=== PATIENT | male | born 1935 | race Caucasian/White ===

== ENCOUNTER 2018-12-10 13:04 | Inpatient (IN) | payer MEDICARE ==
[~2018-12-10] VITALS: Ht 170.2 cm; Wt 77.6 kg
[2018-12-10] MEDS ORDERED: IV NS 1000 ML 1,000 ML IV PRN (16:30)
[2018-12-10] MEDS ORDERED: ONDANSETRON 4 MG/2 ML VIAL IV PRN (16:30)
[2018-12-10] MEDS ORDERED: MAGNESIUM HYDROXIDE 30 ML LIQUID UDC PO PRN (16:30)
[2018-12-10] MEDS ORDERED: Z GUARD REMEDY PASTE 57 GM TUBE TOP PRN (16:30)
[2018-12-10 16:31] VITALS: BP 117/91
[2018-12-10 17:41] LABS: ALANINE AMINOTRANSFERASE 7 U/L (16-63); ALKALINE PHOSPHATASE 44 U/L (50-136); ASPARTATE AMINOTRANSFERASE 12 U/L (15-37); BILIRUBIN,TOTAL 0.8 mg/dL (0.2-1.0); CARBON DIOXIDE 22 mmol/L (21-32); CHLORIDE 124 mmol/L (98-107); CREATININE 1.1 mg/dL (0.6-1.3); GLUCOSE 121 mg/dL (74-106); PHOSPHOROUS 3.4 mg/dL (2.5-4.9); POTASSIUM 3.3 mmol/L (3.5-5.1); TOTAL PROTEIN, SERUM 6.1 g/dL (6.4-8.2); UREA NITROGEN, BLOOD 43 mg/dL (7-18)
[2018-12-10 17:43] LABS: BASOPHILS % (AUTO) 0.5 % (0.0-2.0); EOSINOPHILS % (AUTO) 0.1 % (0.0-7.0); HEMATOCRIT 35.7 % (36.7-47.1); HEMOGLOBIN 11.7 g/dL (12.5-16.3); LYMPHOCYTES # (AUTO) 0.8 K/uL (20.0-40.0); LYMPHOCYTES % (AUTO) 9.3 % (20.5-51.5); MEAN CORPUSCULAR HEMOGLOBIN 26.8 uug (23.8-33.4); MEAN CORPUSCULAR HGB CONC 33 g/dL (32.5-36.3); MEAN CORPUSCULAR VOLUME 81.6 fL (73.0-96.2); MONOCYTES # (AUTO) 0.9 K/uL (2.0-10.0); NEUTROPHILS % (AUTO) 80.1 % (38.5-71.5); RED BLOOD CELL COUNT(AUTO) 4.37 MIL/uL (4.06-5.63); WHITE BLOOD COUNT (AUTO) 8.8 K/uL (3.6-10.2)
[2018-12-10 17:45] LABS: PLATELET COUNT (AUTO) 132 K/uL (152-348)
[2018-12-10 17:49] LABS: THYROID STIMULATING HORMONE 0.663 mIU/mL (0.358-3.740)
[2018-12-10] MEDS ORDERED: WARF-68 PO (18:02)
[2018-12-10] MEDS ORDERED: METO25TA6 PO (18:02)
[2018-12-10] MEDS ORDERED: WARF-58 PO (18:02)
[2018-12-10] MEDS ORDERED: TRAM50TA2 PO (18:02)
[2018-12-10] MEDS ORDERED: SIMV40TA5 PO (18:02)
[2018-12-10] MEDS ORDERED: VANCOMYCIN IV 1 G in PREMIXED 0 EACH IV SCH (19:00)
[2018-12-10] MEDS: IV D5 1/2 NS 1000 ML 1,000 ML IV PRN (19:40)
[2018-12-10] MEDS: POTASSIUM CHLORIDE 50 ML IV SCH ×2 (19:55→20:58)
[2018-12-10 20:00] VITALS: BP 119/87
[2018-12-10 20:02] VITALS: BP 119/87
[2018-12-10 20:15] LABS: *BILIRUBIN,URIN 1+ (NEGATIVE); *BLOOD, URINE NEGATIVE (NEGATIVE); *CLARITY,URINE CLOUDY (CLEAR); *COLOR,URINE DARK YELLOW (YELLOW); *KETONES,URINE NEGATIVE (NEGATIVE); *UROBILINOGEN,URINE 0.2 E.U./dl (NORMAL); LEUKOCYTE ESTERASE ,URINE TRACE (NEGATIVE); NITRITE, URINE POSITIVE (NEGATIVE); PH,URINE >=9.0 (5.0-8.0); UGLUCOSE NEGATIVE (NEGATIVE)
[2018-12-10 20:59] LABS: BACTERIA,URINE FEW /HPF (NONE SEEN); URINE AMORPHOUS PHOSPHATES MANY /HPF
[2018-12-10 21:00] LABS: MUCUS,URINE MODERATE /LPF (0-FEW); TRIPLE PHOSPHATE CRYSTAL,UR MODERATE /HPF (NONE SEEN)
[2018-12-10] MEDS: DOCUSATE SODIUM 250 MG CAPSULE PO SCH (21:00)
[2018-12-10 22:38] LABS: CHOLESTEROL 90 mg/dL (<200); HDL CHOLESTEROL 18 mg/dL (40-60); TRIGLYCERIDES 54 MG/DL (30-150)
[2018-12-10] MEDS: PIPERACILLIN/TAZOBACTAM/D5W 50 ML IV SCH (23:37)
[2018-12-11] VITALS (7 sets, daily range): BP systolic 98–143; BP diastolic 63–78
[2018-12-11] MEDS ORDERED: PIPERACILLIN SODIUM/TAZOBACTAM 3.375 G in IV DEXTROSE 5% 50 ML IV SCH ×2
[2018-12-11] MEDS: PIPERACILLIN/TAZOBACTAM/D5W 50 ML IV SCH ×4 (05:06→23:10)
[2018-12-11 06:54] LABS: CARBON DIOXIDE 23 mmol/L (21-32); CHLORIDE 124 mmol/L (98-107); GLUCOSE 127 mg/dL (74-106); PHOSPHOROUS 2.5 mg/dL (2.5-4.9); POTASSIUM 3.1 mmol/L (3.5-5.1); UREA NITROGEN, BLOOD 34 mg/dL (7-18)
[2018-12-11] MEDS: FAMOTIDINE. 20 MG/2 ML VIAL IV SCH (08:06)
[2018-12-11] MEDS: IV D5 1/2 NS 1000 ML 1,000 ML IV PRN ×2 (08:07→22:10)
[2018-12-11] MEDS ORDERED: PANTOPRAZOLE SODIUM 40 MG VIAL IV SCH (09:00)
[2018-12-11 09:34] LABS: BASOPHILS % (AUTO) 0.6 % (0.0-2.0); EOSINOPHILS # (AUTO) 0.2 K/uL (0.0-0.7); EOSINOPHILS % (AUTO) 2.2 % (0.0-7.0); HEMATOCRIT 33.9 % (36.7-47.1); LYMPHOCYTES # (AUTO) 0.7 K/uL (20.0-40.0); LYMPHOCYTES % (AUTO) 8.8 % (20.5-51.5); MEAN CORPUSCULAR HEMOGLOBIN 27.3 uug (23.8-33.4); MEAN CORPUSCULAR HGB CONC 32 g/dL (32.5-36.3); MEAN CORPUSCULAR VOLUME 84.3 fL (73.0-96.2); MONOCYTES # (AUTO) 0.7 K/uL (2.0-10.0); MONOCYTES % (AUTO) 7.9 % (0.0-11.0); NEUTROPHILS # (AUTO) 6.7 K/uL (1.8-8.9); NEUTROPHILS % (AUTO) 80.5 % (38.5-71.5); PLATELET COUNT (AUTO) 113 K/uL (152-348); RED BLOOD CELL COUNT(AUTO) 4.02 MIL/uL (4.06-5.63); WHITE BLOOD COUNT (AUTO) 8.4 K/uL (3.6-10.2)
[2018-12-11] MEDS: POTASSIUM CHLORIDE 50 ML IV SCH ×4 (12:22→14:48)
[2018-12-11] MEDS: VANCOMYCIN IV 1,250 MG in IV DEXTROSE 5% 500 ML IV SCH (14:48)
[2018-12-11] MEDS ORDERED: WARFARIN SODIUM 2 MG TABLET PO SCH (17:00)
[2018-12-11] MEDS ORDERED: WARFARIN SODIUM 5 MG TABLET PO SCH (17:00)
[2018-12-11] MEDS: CHLORHEXIDINE GLUCONATE 15 ML MOUTHWASH MM SCH (20:08)
[2018-12-11] MEDS: MUPIROCIN 2% OINT 22 GM TUBE NS SCH (20:09)
[2018-12-11] MEDS: DOCUSATE SODIUM 250 MG CAPSULE PO SCH (20:09)
[2018-12-11] MEDS: SIMVASTATIN 40 MG TABLET PO SCH (20:09)
[2018-12-12] VITALS: BP 115/74
[2018-12-12 04:00] VITALS: BP 132/74
[2018-12-12] MEDS: PIPERACILLIN/TAZOBACTAM/D5W 50 ML IV SCH ×3 (05:06→18:00)
[2018-12-12 06:47] LABS: CARBON DIOXIDE 23 mmol/L (21-32); CHLORIDE 117 mmol/L (98-107); GLUCOSE 93 mg/dL (74-106); MAGNESIUM 1.8 mg/dL (1.8-2.4); UREA NITROGEN, BLOOD 19 mg/dL (7-18)
[2018-12-12 07:13] VITALS: BP 128/78
[2018-12-12] MEDS: CHLORHEXIDINE GLUCONATE 15 ML MOUTHWASH MM SCH ×2 (08:35→20:35)
[2018-12-12] MEDS: MUPIROCIN 2% OINT 22 GM TUBE NS SCH ×2 (08:35→20:39)
[2018-12-12] MEDS: ACETAMINOPHEN 325 MG TABLET PO PRN ×2 (08:37→17:43)
[2018-12-12] MEDS: FAMOTIDINE. 20 MG/2 ML VIAL IV SCH (10:13)
[2018-12-12 11:03] LABS: BASOPHILS % (AUTO) 0.5 % (0.0-2.0); EOSINOPHILS # (AUTO) 0.2 K/uL (0.0-0.7); EOSINOPHILS % (AUTO) 1.9 % (0.0-7.0); HEMATOCRIT 35.9 % (36.7-47.1); HEMOGLOBIN 11.7 g/dL (12.5-16.3); LYMPHOCYTES # (AUTO) 0.9 K/uL (20.0-40.0); LYMPHOCYTES % (AUTO) 9.4 % (20.5-51.5); MEAN CORPUSCULAR HEMOGLOBIN 27.2 uug (23.8-33.4); MEAN CORPUSCULAR HGB CONC 33 g/dL (32.5-36.3); MEAN CORPUSCULAR VOLUME 83.7 fL (73.0-96.2); MONOCYTES # (AUTO) 0.6 K/uL (2.0-10.0); MONOCYTES % (AUTO) 6.2 % (0.0-11.0); NEUTROPHILS # (AUTO) 7.7 K/uL (1.8-8.9); PLATELET COUNT (AUTO) 107 K/uL (152-348); RED BLOOD CELL COUNT(AUTO) 4.29 MIL/uL (4.06-5.63); WHITE BLOOD COUNT (AUTO) 9.4 K/uL (3.6-10.2)
[2018-12-12 11:14] VITALS: BP 135/100
[2018-12-12] MEDS: VANCOMYCIN IV 1,250 MG in IV DEXTROSE 5% 500 ML IV SCH (12:32)
[2018-12-12] MEDS: IV D5 1/2 NS 1000 ML 1,000 ML IV PRN (13:10)
[2018-12-12 15:27] VITALS: BP 123/53
[2018-12-12] MEDS ORDERED: SODIUM HYPOCHLORITE 0.125% 473 ML BOTTLE TP PRN (15:45)
[2018-12-12] MEDS ORDERED: FLUCONAZOLE 200 MG/NS 100ML IV 200 MG in PREMIXED 1 EACH IV SCH (16:00)
[2018-12-12] MEDS: SIMVASTATIN 40 MG TABLET PO SCH (20:40)
[2018-12-12] MEDS: DOCUSATE SODIUM 250 MG CAPSULE PO SCH (20:40)
[2018-12-12 20:58] VITALS: BP 130/46
[2018-12-13] MEDS: PIPERACILLIN/TAZOBACTAM/D5W 50 ML IV SCH ×4 (00:14→17:21)
[2018-12-13] MEDS: ACETAMINOPHEN 325 MG TABLET PO PRN ×3 (02:29→20:00)
[2018-12-13 04:56] VITALS: BP 143/74
[2018-12-13] MEDS: IV D5 1/2 NS 1000 ML 1,000 ML IV PRN ×2 (05:27→20:00)
[2018-12-13 08:00] VITALS: BP 132/82
[2018-12-13 08:49] LABS: BASOPHILS % (AUTO) 0.4 % (0.0-2.0); EOSINOPHILS # (AUTO) 0.2 K/uL (0.0-0.7); EOSINOPHILS % (AUTO) 2.9 % (0.0-7.0); HEMATOCRIT 28.8 % (36.7-47.1); HEMOGLOBIN 9.6 g/dL (12.5-16.3); LYMPHOCYTES # (AUTO) 0.8 K/uL (20.0-40.0); LYMPHOCYTES % (AUTO) 12.4 % (20.5-51.5); MEAN CORPUSCULAR HEMOGLOBIN 27.2 uug (23.8-33.4); MEAN CORPUSCULAR HGB CONC 33 g/dL (32.5-36.3); MEAN CORPUSCULAR VOLUME 81.7 fL (73.0-96.2); MONOCYTES # (AUTO) 0.4 K/uL (2.0-10.0); MONOCYTES % (AUTO) 5.3 % (0.0-11.0); NEUTROPHILS # (AUTO) 5.4 K/uL (1.8-8.9); PLATELET COUNT (AUTO) 84 K/uL (152-348); RED BLOOD CELL COUNT(AUTO) 3.53 MIL/uL (4.06-5.63); WHITE BLOOD COUNT (AUTO) 6.8 K/uL (3.6-10.2)
[2018-12-13] MEDS: VANCOMYCIN IV 1,250 MG in IV DEXTROSE 5% 500 ML IV SCH (08:54)
[2018-12-13] MEDS: CHLORHEXIDINE GLUCONATE 15 ML MOUTHWASH MM SCH ×2 (08:54→20:01)
[2018-12-13] MEDS: FAMOTIDINE. 20 MG/2 ML VIAL IV SCH (08:54)
[2018-12-13] MEDS: MUPIROCIN 2% OINT 22 GM TUBE NS SCH ×2 (08:55→20:01)
[2018-12-13 09:49] LABS: ALANINE AMINOTRANSFERASE < 6 U/L (16-63); ALKALINE PHOSPHATASE 47 U/L (50-136); ASPARTATE AMINOTRANSFERASE 21 U/L (15-37); BILIRUBIN,TOTAL 0.9 mg/dL (0.2-1.0); CARBON DIOXIDE 23 mmol/L (21-32); CHLORIDE 112 mmol/L (98-107); CREATININE 0.9 mg/dL (0.6-1.3); GLUCOSE 88 mg/dL (74-106); MAGNESIUM 1.7 mg/dL (1.8-2.4); TOTAL PROTEIN, SERUM 6.1 g/dL (6.4-8.2); UREA NITROGEN, BLOOD 14 mg/dL (7-18)
[2018-12-13 09:52] LABS: POTASSIUM 2.7 mmol/L (3.5-5.1)
[2018-12-13] MEDS ORDERED: POTASSIUM CHLORIDE 20 MEQ TAB.PRT.SR PO ONE (11:15)
[2018-12-13 11:21] VITALS: BP 123/82
[2018-12-13] MEDS: POTASSIUM CHLORIDE 50 ML IV SCH ×4 (11:41→15:50)
[2018-12-13 15:30] VITALS: BP 138/86
[2018-12-13] MEDS ORDERED: NEUTRA PHOS PACKET PO ONE (15:45)
[2018-12-13] MEDS: DOCUSATE SODIUM 250 MG CAPSULE PO SCH (20:00)
[2018-12-13] MEDS: SIMVASTATIN 40 MG TABLET PO SCH (20:00)
[2018-12-13] MEDS: CULTURELLE CAPSULE PO SCH (20:00)
[2018-12-13 20:17] VITALS: BP 132/75
[2018-12-14] MEDS: PIPERACILLIN/TAZOBACTAM/D5W 50 ML IV SCH ×4 (00:23→17:26)
[2018-12-14 05:15] VITALS: BP 138/88
[2018-12-14] MEDS: ACETAMINOPHEN 325 MG TABLET PO PRN (05:37)
[2018-12-14 05:38] LABS: BASOPHILS % (AUTO) 0.6 % (0.0-2.0); EOSINOPHILS # (AUTO) 0.3 K/uL (0.0-0.7); EOSINOPHILS % (AUTO) 3.6 % (0.0-7.0); HEMATOCRIT 31.1 % (36.7-47.1); HEMOGLOBIN 10.4 g/dL (12.5-16.3); LYMPHOCYTES # (AUTO) 0.9 K/uL (20.0-40.0); LYMPHOCYTES % (AUTO) 12.1 % (20.5-51.5); MEAN CORPUSCULAR HGB CONC 34 g/dL (32.5-36.3); MEAN CORPUSCULAR VOLUME 80.4 fL (73.0-96.2); MONOCYTES # (AUTO) 0.4 K/uL (2.0-10.0); MONOCYTES % (AUTO) 5.4 % (0.0-11.0); NEUTROPHILS # (AUTO) 5.6 K/uL (1.8-8.9); NEUTROPHILS % (AUTO) 78.3 % (38.5-71.5); PLATELET COUNT (AUTO) 100 K/uL (152-348); RED BLOOD CELL COUNT(AUTO) 3.87 MIL/uL (4.06-5.63); WHITE BLOOD COUNT (AUTO) 7.1 K/uL (3.6-10.2)
[2018-12-14 05:55] LABS: CARBON DIOXIDE 25 mmol/L (21-32); CHLORIDE 112 mmol/L (98-107); CREATININE 0.7 mg/dL (0.6-1.3); GLUCOSE 78 mg/dL (74-106); MAGNESIUM 1.6 mg/dL (1.8-2.4); PHOSPHOROUS 2.3 mg/dL (2.5-4.9); POTASSIUM 3.2 mmol/L (3.5-5.1); UREA NITROGEN, BLOOD 7 mg/dL (7-18)
[2018-12-14] MEDS: VANCOMYCIN IV 1,250 MG in IV DEXTROSE 5% 500 ML IV SCH ×2 (06:31→20:59)
[2018-12-14] MEDS: MUPIROCIN 2% OINT 22 GM TUBE NS SCH ×2 (09:04→21:00)
[2018-12-14] MEDS: CULTURELLE CAPSULE PO SCH ×2 (09:04→21:00)
[2018-12-14] MEDS: CHLORHEXIDINE GLUCONATE 15 ML MOUTHWASH MM SCH ×2 (09:04→21:00)
[2018-12-14] MEDS: FAMOTIDINE 20 MG TABLET PO SCH (09:05)
[2018-12-14] MEDS ORDERED: MAGNESIUM OXIDE 400 MG TABLET PO ONE (10:45)
[2018-12-14 11:03] VITALS: BP 110/74
[2018-12-14] MEDS: POTASSIUM PHOSPHATE MM 5 MMOL in IV DEXTROSE 5% 100 ML IV SCH ×2 (12:14→14:54)
[2018-12-14 16:00] VITALS: BP 147/82
[2018-12-14 20:01] VITALS: BP 129/76
[2018-12-14] MEDS: DOCUSATE SODIUM 250 MG CAPSULE PO SCH (21:00)
[2018-12-14] MEDS: SIMVASTATIN 40 MG TABLET PO SCH (21:00)
[2018-12-15] MEDS: PIPERACILLIN/TAZOBACTAM/D5W 50 ML IV SCH ×4 (00:57→18:00)
[2018-12-15 05:07] VITALS: BP 146/78
[2018-12-15 06:27] LABS: BASOPHILS % (AUTO) 0.6 % (0.0-2.0); EOSINOPHILS # (AUTO) 0.3 K/uL (0.0-0.7); EOSINOPHILS % (AUTO) 3.5 % (0.0-7.0); HEMATOCRIT 30.5 % (36.7-47.1); HEMOGLOBIN 10.4 g/dL (12.5-16.3); LYMPHOCYTES # (AUTO) 0.7 K/uL (20.0-40.0); LYMPHOCYTES % (AUTO) 10.2 % (20.5-51.5); MEAN CORPUSCULAR HEMOGLOBIN 27.7 uug (23.8-33.4); MEAN CORPUSCULAR HGB CONC 34 g/dL (32.5-36.3); MEAN CORPUSCULAR VOLUME 81.4 fL (73.0-96.2); MONOCYTES # (AUTO) 0.4 K/uL (2.0-10.0); MONOCYTES % (AUTO) 5.8 % (0.0-11.0); NEUTROPHILS # (AUTO) 5.9 K/uL (1.8-8.9); NEUTROPHILS % (AUTO) 79.9 % (38.5-71.5); PLATELET COUNT (AUTO) 111 K/uL (152-348); RED BLOOD CELL COUNT(AUTO) 3.75 MIL/uL (4.06-5.63); WHITE BLOOD COUNT (AUTO) 7.3 K/uL (3.6-10.2)
[2018-12-15 06:47] LABS: CARBON DIOXIDE 26 mmol/L (21-32); CHLORIDE 109 mmol/L (98-107); CREATININE 0.8 mg/dL (0.6-1.3); GLUCOSE 85 mg/dL (74-106); MAGNESIUM 1.7 mg/dL (1.8-2.4); PHOSPHOROUS 2.4 mg/dL (2.5-4.9); POTASSIUM 3.2 mmol/L (3.5-5.1); UREA NITROGEN, BLOOD 6 mg/dL (7-18)
[2018-12-15] MEDS: FAMOTIDINE 20 MG TABLET PO SCH (08:59)
[2018-12-15] MEDS: CULTURELLE CAPSULE PO SCH (08:59)
[2018-12-15] MEDS: MUPIROCIN 2% OINT 22 GM TUBE NS SCH (08:59)
[2018-12-15] MEDS: CHLORHEXIDINE GLUCONATE 15 ML MOUTHWASH MM SCH (09:02)
[2018-12-15] MEDS ORDERED: POTASSIUM CHLORIDE 10 MEQ TAB.PRT.SR PO ONE (10:15)
[2018-12-15] MEDS ORDERED: MAGNESIUM OXIDE 400 MG TABLET PO ONE (10:15)
[2018-12-15] MEDS: VANCOMYCIN IV 1,250 MG in IV DEXTROSE 5% 500 ML IV SCH (10:41)
[2018-12-15 11:06] VITALS: BP 119/74
[2018-12-15] MEDS ORDERED: POTASSIUM CHLORIDE 20 MEQ TAB.PRT.SR PO ONE (11:30)
[2018-12-15] MEDS ORDERED: NEUTRA PHOS PACKET PO ONE (11:30)
[2018-12-15] MEDS ORDERED: PIPE3.376 IV (15:15)
[2018-12-15 15:22] VITALS: BP 140/90
== END 2018-12-15 18:26 | DRG 871 ==
LOC: TELE-TD3 15:28 → MEDSURG3 12-12 11:14
PROVIDERS: ADMIT Registered Nurse; ATTEND Registered Nurse
PROC: 02HV33Z Insertion of Infusion Device into Superior Vena Cava, Percutaneous Approach (ICD-10-PCS; principal; 2018-12-10)
DX: A41.01 Sepsis due to Methicillin susceptible Staphylococcus aureus (principal); J15.211 Pneumonia due to Methicillin susceptible Staphylococcus aureus; N17.0 Acute kidney failure with tubular necrosis; E43 Unspecified severe protein-calorie malnutrition; J69.0 Pneumonitis due to inhalation of food and vomit; N39.0 Urinary tract infection, site not specified; E87.2 Acidosis; E87.0 Hyperosmolality and hypernatremia; D68.9 Coagulation defect, unspecified; R65.20 Severe sepsis without septic shock; Z79.01 Long term (current) use of anticoagulants; I48.91 Unspecified atrial fibrillation; C44.42 Squamous cell carcinoma of skin of scalp and neck; Z66 Do not resuscitate; Z93.6 Other artificial openings of urinary tract status; Z22.321 Carrier or suspected carrier of Methicillin susceptible Staphylococcus aureus; D69.6 Thrombocytopenia, unspecified; Z68.26 Body mass index [BMI] 26.0-26.9, adult; E78.5 Hyperlipidemia, unspecified; I12.9 Hypertensive chronic kidney disease with stage 1 through stage 4 chronic kidney disease, or unspecified chronic kidney disease; N18.9 Chronic kidney disease, unspecified; Z89.512 Acquired absence of left leg below knee; Z87.81 Personal history of (healed) traumatic fracture; Z89.612 Acquired absence of left leg above knee; L89.159 Pressure ulcer of sacral region, unspecified stage; R32 Unspecified urinary incontinence; T83.098A Other mechanical complication of other urinary catheter, initial encounter; Y73.8 Miscellaneous gastroenterology and urology devices associated with adverse incidents, not elsewhere classified; Y92.89 Other specified places as the place of occurrence of the external cause; I73.9 Peripheral vascular disease, unspecified; E87.6 Hypokalemia; E83.39 Other disorders of phosphorus metabolism; I27.20 Pulmonary hypertension, unspecified; D64.9 Anemia, unspecified; Z86.79 Personal history of other diseases of the circulatory system; Z86.73 Personal history of transient ischemic attack (TIA), and cerebral infarction without residual deficits
CPT/HCPCS: 36415; 71045; 83605; 83735; 84100; 84300; 84443; 85025; 85610; 87040; 87070; 87077; 87086; 93005; 93307; A4217; A4663; G0378; J2543; J3370; J3480; J3490; J7040; J7050; J7060

== ENCOUNTER 2018-12-19 11:37 | Emergency (ER) | payer MEDICARE ==
[~2018-12-19] VITALS: Ht 185.4 cm; Wt 81.6 kg
[~2018-12-19 11:37] MED LIST: METO25TA6 PO; PIPE3.376 IV; SIMV40TA5 PO; TRAM50TA2 PO
[2018-12-19] MEDS ORDERED: CEFTRIAXONE 1 G in IV DEXTROSE 5% 50 ML IV ONE (12:15)
[2018-12-19] MEDS ORDERED: VANCOMYCIN IV 1,000 MG in IV DEXTROSE 5% 250 ML IV ONE (12:15)
[2018-12-19] MEDS ORDERED: GENTAMICIN SULFATE INJ 80 MG in IV DEXTROSE 5% 100 ML IV ONE (12:15)
[2018-12-19] MEDS ORDERED: IV NORMAL SALINE 1000 ML BAG IV ONE (12:15)
[2018-12-19 12:33] LABS: BASOPHILS # (AUTO) 0.1 K/uL (0.0-8.0); BASOPHILS % (AUTO) 0.6 % (0.0-2.0); EOSINOPHILS # (AUTO) 0.1 K/uL (0.0-0.7); EOSINOPHILS % (AUTO) 1.3 % (0.0-7.0); HEMATOCRIT 32.1 % (36.7-47.1); HEMOGLOBIN 10.8 g/dL (12.5-16.3); LYMPHOCYTES # (AUTO) 0.8 K/uL (20.0-40.0); LYMPHOCYTES % (AUTO) 7.4 % (20.5-51.5); MEAN CORPUSCULAR HEMOGLOBIN 27.7 uug (23.8-33.4); MEAN CORPUSCULAR HGB CONC 34 g/dL (32.5-36.3); MEAN CORPUSCULAR VOLUME 82.2 fL (73.0-96.2); MONOCYTES # (AUTO) 0.7 K/uL (2.0-10.0); MONOCYTES % (AUTO) 6.6 % (0.0-11.0); NEUTROPHILS % (AUTO) 84.1 % (38.5-71.5); PLATELET COUNT (AUTO) 187 K/uL (152-348); RED BLOOD CELL COUNT(AUTO) 3.91 MIL/uL (4.06-5.63); WHITE BLOOD COUNT (AUTO) 10.7 K/uL (3.6-10.2)
[2018-12-19 12:38] LABS: CARBON DIOXIDE 26 mmol/L (21-32); CHLORIDE 106 mmol/L (98-107); GLUCOSE 82 mg/dL (74-106); POTASSIUM 3.7 mmol/L (3.5-5.1); UREA NITROGEN, BLOOD 9 mg/dL (7-18)
[2018-12-19 12:51] LABS: ALANINE AMINOTRANSFERASE 14 U/L (16-63); ALKALINE PHOSPHATASE 56 U/L (50-136); ASPARTATE AMINOTRANSFERASE 16 U/L (15-37); BILIRUBIN,DIRECT 0.2 mg/dL (0.0-0.2); BILIRUBIN,TOTAL 0.8 mg/dL (0.2-1.0); TOTAL PROTEIN, SERUM 6.6 g/dL (6.4-8.2)
--- NOTE | 2018-12-19 13:01 | NUR ---
IV bolus & IVPB (Cetriaxone & gentamycin) are still infusing, endorsed to BRAYDON Palmer.
[2018-12-19 13:09] LABS: *BILIRUBIN,URIN NEGATIVE (NEGATIVE); *BLOOD, URINE 2+ (NEGATIVE); *CLARITY,URINE CLOUDY (CLEAR); *COLOR,URINE YELLOW (YELLOW); *KETONES,URINE NEGATIVE (NEGATIVE); LEUKOCYTE ESTERASE ,URINE 3+ (NEGATIVE); NITRITE, URINE NEGATIVE (NEGATIVE); UGLUCOSE NEGATIVE (NEGATIVE)
[2018-12-19 13:19] LABS: WBC,URINE TNTC /HPF (0-3)
[2018-12-19 13:21] LABS: SQUAMOUS EPITHELIAL CELL,UR FEW /HPF (NONE SEEN)
[2018-12-19 13:22] LABS: YEAST,URINE MODERATE /HPF (NONE SEEN)
[2018-12-19 13:30] LABS: BACTERIA,URINE NONE SEEN /HPF (NONE SEEN)
[2018-12-19] MEDS ORDERED: ONDA4TAB5 PO (13:52)
[2018-12-19] MEDS ORDERED: MUPI22OI2 TP (13:52)
[2018-12-19] MEDS ORDERED: DOCU100C36 PO (13:52)
[2018-12-19] MEDS ORDERED: FAMO40TA7 PO (13:52)
[2018-12-19] MEDS ORDERED: MAGN400O6 PO (13:52)
[2018-12-19] MEDS ORDERED: L. A1CAP11 PO (13:52)
[2018-12-19] MEDS ORDERED: ACET325C5 PO (13:52)
[2018-12-19] MEDS ORDERED: APLISOL (13:52)
[2018-12-19] MEDS ORDERED: VANCOMYCIN 1000 MG VIAL ONE (13:59)
--- NOTE | 2018-12-19 14:25 | NUR ---
Call placed to [facility] ambulance, ETA [id number] for pickup.
--- NOTE | 2018-12-19 14:52 | NUR ---
Pt received SBAR from JULIO CÉSAR Fraser and BRAYDON Cantrell. Pt is seen on gurney, supine with IV ABX running along with IV NSS 0.9% 500ml infused, still to infuse 2000mL. noted open nonhealing wound on Right [place]. Re-dressed wound aseptically. Patient is AxO to person only, does not speak when addressed. would always say no when asking for commands. No cardiovascular distress noted +hx of afib. Rate/rhythm regular. No CP. No respiratory distress noted. Respirations even , unlabored, symmetrical chest rise. No adventitious sounds noted. Primary Concern: Suprapubic Catheter Replacement due to pain. able to tolerate procedure. Denies Fever/Chills. SAFETY Patient in bed, bed in lowest position. Siderails up x 2. Call light within reach. Will continue to monitor accordingly
--- NOTE | 2018-12-19 15:13 | NUR ---
Call received from patient's daughter who requested information regarding patient's condition and disposition. Daughter was informed of replacement of catheter and expected return to the nursing facility. The daughter requested that a leg bag be utilized with the catheter.
--- NOTE | 2018-12-19 17:15 | NUR ---
[facility] discharged to [facility] conditon. Written and verbal after care instructions given. Patient verbalizes understanding of instructions. ENDORSED TO TRANSPORT BACK TO [facility] G[facility]. STABLE AND NOT IN DISTRESS.
[2018-12-19 17:38] VITALS: BP 158/86
== END 2018-12-19 17:40 | disposition home or self-care (01) ==
LOC: ER 11:37 → EDBD 11:37 → ER 17:40
DX: Z46.6 Encounter for fitting and adjustment of urinary device (principal); I48.91 Unspecified atrial fibrillation; Z79.2 Long term (current) use of antibiotics; Z79.899 Other long term (current) drug therapy; Z86.73 Personal history of transient ischemic attack (TIA), and cerebral infarction without residual deficits
CPT/HCPCS: 36415; 51702; 71045; 80048; 80076; 81000; 81001; 83605; 83880; 84145; 84484; 85025; 85730; 87040 ×2; 87086; 87106; 93005; 96365; 96366; 96368; 99284; J0696; J1580; J3370; J7060 ×3; 70030-TC; A4217; A4663; J7030; J7040